=== PATIENT | male | born 1965 | race Caucasian/White ===

== ENCOUNTER 2018-08-08 06:16 | Day surgery (SDC) | payer OTHER ==
[2018-08-08] MEDS ORDERED: MIDAZOLAM 1 MG/ML 2 ML INJ ×3 (08:37)
[2018-08-08] MEDS ORDERED: FENTAnyl 50 MCG/ML VIAL (08:37)
== END 2018-08-08 14:09 | disposition home or self-care (01) ==
LOC: GIL 06:16
DX: Z12.11 Encounter for screening for malignant neoplasm of colon (principal); K64.8 Other hemorrhoids; K57.30 Diverticulosis of large intestine without perforation or abscess without bleeding
CPT/HCPCS: 45378